=== PATIENT | female | born 1995 | race Caucasian/White ===

== ENCOUNTER 2020-07-04 17:29 | Emergency (ER) | payer BC, SELFPAY ==
[2020-07-04 17:57] VITALS: BP 131/91; PULSE 76; RESP 17; TEMP 36.6; O2SAT 99; BMI 23.3
--- NOTE | 2020-07-04 18:34 | [facility].EDUTC ---
[facility] [place] Disposition Clinical Impression: Dog bite Qualifiers: Encounter type: initial encounter Qualified Code(s): W54.0XXA - Bitten by dog, initial encounter Disposition: Home, Self-Care Condition on Discharge: Good Instructions: DI for Dog Bite, Animal Bites, Amoxicillin and Clavulanic Acid Additional Instructions: Keep wound area clean and dry Follow up with Family Doctor if no improvement or any worsening of symptoms Return if needed Straight to ER if any life threatening symptoms Over the counter Neosporin to area if needed Prescriptions: Amoxicillin/Potassium Clav [Augmentin 875-125 Tablet] 1 tab PO Q12H 5 Days #10 tab Transmission Status: Pending to [facility] #[id number] Referrals: PCP,No [Primary Care Provider] - As needed Time of Disposition: 18:41 Medical Decision Making - Chace Inquiry Pt receiving controlled substance: No Chace was queried for this patient: No Vital Signs: 07/04/20 17:57 Temperature 97.9 F Temperature Source Oral Pulse Rate [Right Brachial] 76 Respiratory Rate 17 Blood Pressure [Right Arm] 131/91 H Blood Pressure Mean [Right Arm] 104 Blood Pressure Source [Right Arm] Automatic Cuff Blood Pressure Position [Right Arm] Sitting 02 Sat by Pulse Oximetry 99 [facility] [place] HPI - General Stated complaint: AO [id number]#[id number] bite by dog R Hand Time Seen by Provider: 07/04/20 18:34 Mode of Arrival: Ambulatory Source of Information: Patient Limitations: No Limitations Description of Symptoms (Recalled from Triage Doc. by RN): Patient reports she was biten by a dog on her right hand. Mild swelling, no loss of movement. Up to date on tetanus. HEENT Symptoms (Recalled from RN notes): No Resp Symptoms (Recalled from RN notes): No Skin Symptoms (Recalled from RN notes): Yes MS Symptoms (Recalled from RN notes): No Functional Status (Recalled from RN notes): wnl - History of Present Illness Provider Complaint: Patient state that she works at the [employer] and she was caring for a dog when she was bitten multiple times on her right hand and wrist area State that she is up to dates on her Tetanus but today she noticed several of the bites was looking red and infected and mild swelling so she came in to get it chekced - Related Data Previous Rx's Medication Instructions Recorded Amoxicillin/Potassium Clav 1 tab PO Q12H 5 Days #10 tab 07/04/20 [Augmentin 875-125 Tablet] Allergies Allergy/AdvReac Type Severity Reaction Status Date / Time No Known Allergies Allergy Verified 07/04/20 18:36 - Worker's Comp Is this a Worker's Comp case?: No [facility] History - Hepatitis A Screen Drug use history?: No High risk sexual behaviors?: No History of sexually transmitted infection?: No Currently employed?: No Childcare worker?: No Do you have indoor plumbing?: Yes Do you have electricity?: Yes Attestation statement:: This patient has been screened for Hepatitis A risk factors. ROS Obtained: Yes All systems reviewed & no additional complaints, Yes Systems reviewed as appropriate & no additional complaints - Constitutional Constitutional: Reports system reviewed and no additional complaints, except as docu - ENT Ears, Nose, Mouth, and Throat: Reports system reviewed and no additional complaints, except as docu - Cardiovascular Cardiovascular: Reports system reviewed and no additional complaints, except as docu - Allergic/Immunologic Comments: Multiple small dog bites to her right hand with several bites looking red and swollen Physical Exam - General General appearance: alert, in no apparent distress - Respiratory Respiratory exam: Present: normal lung sounds bilaterally. Absent: respiratory distress - Cardiovascular Cardiovascular exam: Present: regular rate, normal rhythm. Absent: JVD - Expanded Upper Extremity Exam Right Forearm/Wrist exam: Present: swelling, erythema (with mild bruising around dog bite) Hand exam: Present: swelling, other (multipl
[2020-07-04 19:05] VITALS: BP 131/91; PULSE 76; RESP 17; TEMP 36.6; O2SAT 99
== END 2020-07-04 18:50 | disposition home or self-care (01) ==
PROVIDERS: Emergency Provider Nurse Practitioner
DX: S61.431A Puncture wound without foreign body of right hand, initial encounter (principal); W54.0XXA Bitten by dog, initial encounter; Y92.69 Other specified industrial and construction area as the place of occurrence of the external cause; Y99.0 Civilian activity done for income or pay
CPT/HCPCS: 99202; G0463